=== PATIENT | male | born 2000 | race Hispanic/Latino ===

== ENCOUNTER → 2022-07-14 09:13 | Outpatient (CLI) | payer BC, SELFPAY ==
--- NOTE | ~2022-07-14 | MR_ITS ---
MRI of the left shoulder Technique: Axial proton-density fat-sat, T1 weighted, and T1 fat-sat images, coronal proton density f at-sat and T2 fat-sat images, and sagittal T1-weighted and T2 fat-sat images were acquired. Following intravenous administration of 16 cc MultiHance gadolinium, T1-weighted fat-sat imaging was performed in the axial, coronal, and sagittal planes. Clinical History: Pain Findings: There is moderate AC joint degenerative change. No subacromial spur. Coracoclavicular, chari coacromial, and coracohumeral ligaments are intact. Supraspinatus and infraspinatus tendons are intact, without partial or full-thickness tear. Subscapul luis carlos tendon is intact. Tendon of the long head of the biceps is intact. There is posterior inferior labral tear with associated 5 mm para-labral cyst (axial image 18). Inferior glenohumeral ligament is intact. No degenerative change or effusion of the glenohumeral join t. No fluid distention of the subacromial/subdeltoid bursa. No muscle atrophy or edema identified. No abnormal postcontrast enhancement identified. Impression: Posterior inferior labral tear with associated 5 mm paralabral cyst. Moderate AC joint degenerative change. Reviewed, dictated and finalized at [facility]. Impression: Posterior inferior labral tear with associated 5 mm paralabral cyst. Moderate AC joint degenerative change.
== END ==
DX: M19.012 Primary osteoarthritis, left shoulder (principal)
CPT/HCPCS: 73223; A9577